=== PATIENT | female | born 2000 | race Caucasian/White ===

== ENCOUNTER 2024-11-27 07:24 | Inpatient (IN) ==
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
[~2024-11-27 07:24] MED LIST: DEXAMETHASONE SOD INJ 4 MG/ML VIAL ONE; MoRPHine SULFATE PF 1 MG/ML 10 ML AMP/VIAL ONE; ONDANSETRON INJ 2 MG/ML 2 ML VIAL ONE; OXYTOCIN 10 UNITS/ML VIAL ONE; PHENYLEPHRINE HCL 25 MG/250 ML NSS IV ONE
[2024-11-27] MEDS ORDERED: LIDOCAINE 1% LOCAL 20 ML VIAL INFIL PRN (08:56)
[2024-11-27] MEDS ORDERED: OXYTOCIN 30 UNITS/NSS 30 UNITS/500 ML BAG IV PRN (08:56)
[2024-11-27] MEDS ORDERED: SODIUM CHLORIDE 0.9% 100 ML IV PRN (08:58)
[2024-11-27 09:44] LABS: Hematocrit (blood only) 32.9 % (37.0-47.0); Hemoglobin 10.9 g/dl (12.0-16.0); Mean Corpuscular Hemoglobin 27.8 pg (25.0-34.0); Mean Corpuscular Volume 83.9 fL (80.0-100.0); Platelet Count 190 K/uL (130-400); RDW Standard Deviation 43.7 fL (36.4-46.3); Red Blood Count 3.92 M/uL (4.20-5.40); White Blood Count 7.55 K/ul (4.8-10.8)
[2024-11-27] MEDS: OXYTOCIN 30 UNITS/NSS 30 UNITS/500 ML BAG IV PRN (09:51)
[2024-11-27] MEDS: LACTATED RINGER'S 1,000 ML IV PRN (09:53)
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
--- NOTE | 2024-11-27 14:00 | Labor Progress Brief Note ---
Date of Service November 27, 2024 Subjective ctx manageable Assessment & Plan (1) Desires (vaginal after ) trial: Plan: 24 yo at 39 wga presents for tolac iol VSS Fetus cat 1 Labor - pit at 10, offered arom and pt agreeable, tolerated well GBS neg epidural prn Admission and Anticipated Discharge Date Admission Date: November 27, 2024 Physical Exam Genitourinary: Manual OB Exam: + cervical dilation (3-4), + cervical effacement 60%, + station -2 and + amniotic fluid (arom clear) OB Exam Monitor Tracing: + external FHT monitor used, + external uterine monitor used (q3-4) and + category I (110-120/mod/+accel/-decel) Results & Data Vital Signs (Past 12 Hours) Vital Signs Temp Pulse Resp BP 11/27/24 13:49 98.4 F 11/27/24 13:05 75 128/69 11/27/24 12:04 69 119/73 11/27/24 11:00 97.9 F 69 18 121/76 11/27/24 09:54 68 111/72 11/27/24 07:50 75 116/64 11/27/24 07:37 98.4 F 75 18 116/64 Coding Level of Care Code None Diagnoses Desires (vaginal after ) trial O34.219
[2024-11-27] MEDS ORDERED: LIDOCAINE 2% MPF LOCAL 5 ML VIAL EPI PRN (16:36)
[2024-11-27] MEDS ORDERED: NALBUPHINE HCL INJ 10 MG/ML AMP IV PRN ×2 (16:36→21:36)
[2024-11-27] MEDS ORDERED: SODIUM CHLORIDE 0.9% PF INJ 10 ML VIAL EPI PRN (16:36)
[2024-11-27] MEDS ORDERED: NALOXONE HCL 1 MG in SODIUM CHLORIDE 0.9% 1,000 ML IV PRN ×2 (16:36→21:36)
[2024-11-27] MEDS ORDERED: BUPIVACAINE 0.25% PF 30 ML VIAL EPI PRN (16:36)
[2024-11-27] MEDS ORDERED: ROPIVACAINE 0.5% PF 5 MG/ML 20 ML VIAL EPI PRN (16:36)
[2024-11-27] MEDS ORDERED: diphenhydrAMINE 50 MG/ML VIAL IV PRN (16:36)
[2024-11-27] MEDS ORDERED: NALOXONE HCL 0.4 MG/1 ML VIAL/CARP IV PRN ×2 (16:36→21:36)
[2024-11-27] MEDS ORDERED: ONDANSETRON INJ 2 MG/ML 2 ML VIAL IV PRN ×2 (16:36→21:36)
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
[2024-11-27] MEDS: LIDOCAINE 2%/EPINEPHRINE 1:200,000 20 ML PF ONE (16:56)
[2024-11-27] MEDS: fentANYL 2 MCG/ML BUPIVacaine 0.125%-NSS 100ML BAG EPI PRN (16:56)
[2024-11-27] MEDS: BUPIVACAINE 0.25% PF 30 ML VIAL EPI STA (16:57)
--- NOTE | 2024-11-27 17:16 | Labor Progress Brief Note ---
Date of Service November 27, 2024 Subjective comfortable w/ epidural Assessment & Plan (1) Desires (vaginal after ) trial: Plan: 24 yo at 39 wga presents for tolac iol VSS Fetus cat 1 Labor - pit at 16, progress noted in exam. Continue induction GBS neg epidural in place Admission and Anticipated Discharge Date Admission Date: November 27, 2024 Physical Exam Genitourinary: Manual OB Exam: + cervical dilation 4 cm, + cervical effacement 70% and + station -1 OB Exam Monitor Tracing: + external FHT monitor used, + external uterine monitor used (q3-4) and + category I (110-120/mod/+accel/- decel) Results & Data Vital Signs (Past 12 Hours) Vital Signs Temp Pulse Resp BP Pulse Ox 11/27/24 17:12 70 100 11/27/24 17:11 75 112/77 11/27/24 17:07 71 99 11/27/24 17:04 71 123/66 11/27/24 17:02 71 120/62 100 11/27/24 17:00 83 118/61 11/27/24 16:58 77 119/61 11/27/24 16:57 75 100 11/27/24 16:56 78 123/70 11/27/24 16:54 76 118/63 11/27/24 16:52 70 125/69 100 11/27/24 16:47 89 100 11/27/24 16:42 75 100 11/27/24 16:00 20 11/27/24 16:00 97.9 F 20 11/27/24 15:56 81 126/73 11/27/24 15:03 73 121/72 11/27/24 14:06 78 129/76 11/27/24 13:49 98.4 F 11/27/24 13:05 75 128/69 11/27/24 12:04 69 119/73 11/27/24 11:00 97.9 F 69 18 121/76 11/27/24 09:54 68 111/72 11/27/24 07:50 75 116/64 11/27/24 07:37 98.4 F 75 18 116/64 Coding Level of Care Code None Diagnoses Desires (vaginal after ) trial O34.219
[2024-11-27] MEDS: SODIUM CHLORIDE 0.9% PF INJ 10 ML VIAL EPI STA (18:58)
[2024-11-27] MEDS: BUPIVACAINE 0.25% PF 30 ML VIAL ONE (18:58)
[2024-11-27] MEDS: fentANYL 2 MCG/ML BUPIVacaine 0.125%-NSS 100ML BAG ONE (18:58)
[2024-11-27] MEDS: SODIUM CHLORIDE 0.9% PF INJ 10 ML VIAL ONE (18:58)
[2024-11-27] MEDS: LIDOCAINE 2%/EPINEPHRINE 1:200,000 20 ML PF EPI STA (18:58)
--- NOTE | 2024-11-27 19:58 | Labor Progress Brief Note ---
Date of Service November 27, 2024 Subjective evaluated due to variables Assessment & Plan (1) Desires (vaginal after ) trial: Plan: 24 yo at 39 wga presents for tolac iol VSS Fetus cat 2 Labor - pit at 18, sve by rn had noted progress to 6 however recurrent variables developed. Would improve initially with repositioning and then recur, occurred with each repositioning. Pitocin d/c'd to allow fetus to recover and will continue to monitor closely GBS neg epidural in place Admission and Anticipated Discharge Date Admission Date: November 27, 2024 Physical Exam Genitourinary: OB Exam Monitor Tracing: + external FHT monitor used, + external uterine monitor used (q3) and + category II (120/mod/+variables) Results & Data Vital Signs (Past 12 Hours) Vital Signs Temp Pulse Resp BP Pulse Ox 11/27/24 19:52 68 100 11/27/24 19:48 70 127/69 11/27/24 19:47 73 11/27/24 19:42 63 11/27/24 19:37 67 11/27/24 19:33 70 134/72 11/27/24 19:32 72 11/27/24 19:31 18 11/27/24 19:31 97.7 F 18 11/27/24 19:27 69 11/27/24 19:22 65 11/27/24 19:19 67 134/74 11/27/24 19:17 63 99 11/27/24 19:12 67 11/27/24 19:07 99 H 99 11/27/24 19:04 63 122/60 11/27/24 19:02 75 11/27/24 18:57 66 11/27/24 18:52 63 11/27/24 18:48 62 114/66 11/27/24 18:47 59 L 11/27/24 18:42 68 11/27/24 18:37 63 11/27/24 18:33 67 115/66 11/27/24 18:32 63 11/27/24 18:27 64 11/27/24 18:22 84 11/27/24 18:18 66 108/66 11/27/24 18:17 66 11/27/24 18:12 62 11/27/24 18:07 62 100 11/27/24 18:03 59 L 119/62 11/27/24 18:02 69 100 11/27/24 17:57 66 100 11/27/24 17:55 64 127/74 11/27/24 17:52 62 100 11/27/24 17:51 61 134/67 11/27/24 17:47 64 100 11/27/24 17:45 68 114/68 11/27/24 17:42 70 100 11/27/24 17:41 61 120/71 11/27/24 17:37 63 99 11/27/24 17:35 68 108/65 11/27/24 17:32 64 99 11/27/24 17:31 68 104/65 11/27/24 17:27 73 118/59 L 99 11/27/24 17:22 65 99 11/27/24 17:21 68 117/63 11/27/24 17:17 70 100 11/27/24 17:16 68 115/64 11/27/24 17:12 70 100 11/27/24 17:11 75 112/77 11/27/24 17:07 71 99 11/27/24 17:05 18 11/27/24 17:05 97.7 F 18 11/27/24 17:04 71 123/66 11/27/24 17:02 71 120/62 100 11/27/24 17:00 83 118/61 11/27/24 16:58 77 119/61 11/27/24 16:57 75 100 11/27/24 16:56 78 123/70 11/27/24 16:54 76 20 118/63 11/27/24 16:52 70 125/69 100 11/27/24 16:47 89 100 11/27/24 16:42 75 100 11/27/24 16:00 20 11/27/24 16:00 97.9 F 20 11/27/24 15:56 81 126/73 11/27/24 15:03 73 121/72 11/27/24 14:06 78 129/76 11/27/24 13:49 98.4 F 11/27/24 13:05 75 128/69 11/27/24 12:04 69 119/73 11/27/24 11:00 97.9 F 69 18 121/76 11/27/24 09:54 68 111/72 Coding Level of Care Code None Diagnoses Desires (vaginal after ) trial O34.219
[2024-11-27] MEDS ORDERED: OXYTOCIN 10 UNITS/ML VIAL ONE (20:42)
[2024-11-27] MEDS ORDERED: ONDANSETRON INJ 2 MG/ML 2 ML VIAL ONE ×2 (20:42→21:39)
[2024-11-27] MEDS ORDERED: MoRPHine SULFATE PF 1 MG/ML 10 ML AMP/VIAL ONE (20:42)
[2024-11-27] MEDS ORDERED: DEXAMETHASONE SOD INJ 4 MG/ML VIAL ONE ×2 (20:42→21:39)
[2024-11-27] MEDS ORDERED: LIDOCAINE 2%/EPINEPHRINE 1:200,000 20 ML PF ONE (20:42)
--- NOTE | 2024-11-27 20:47 | Labor Progress Brief Note ---
Date of Service November 27, 2024 Assessment & Plan (1) Desires (vaginal after ) trial: Plan: 24 yo at 39 wga presents for tolac iol -fetus recovered somewhat with variables improved in depth however still intermittent and variability remains minimal w/o accels. Discussed concern for intolerance if restarting pitocin, particularly given tolac. Cervix is progressed slightly from earlier but also swelling noted anteriorly which is a lso separately concerning. Discussed for nrfht, pt agreeable. Discussed indications, risks, benefits, alternatives with risks including infection, bleeding, injury to adjacent structures (bowel, bladder, ureters, blood vessels, nerves, baby), possible need for blood transfusion and/or life saving hysterectomy, VTE. Consent reviewed in detail w/ pt and signed after all questions answered to her satisfaction. Admission and Anticipated Discharge Date Admission Date: November 27, 2024 Physical Exam Genitourinary: OB Exam Monitor Tracing: + external FHT monitor used, + external uterine monitor used (6) and + category II (125/min/-accel/+intermit variables) Results & Data Vital Signs (Past 12 Hours) Vital Signs Temp Pulse Resp BP Pulse Ox 11/27/24 20:42 84 11/27/24 20:37 86 11/27/24 20:33 75 144/89 H 11/27/24 20:32 76 11/27/24 20:27 70 11/27/24 20:22 77 11/27/24 20:18 75 123/68 11/27/24 20:17 71 95 11/27/24 20:15 75 93 11/27/24 20:12 78 11/27/24 20:07 77 11/27/24 20:04 62 120/66 11/27/24 20:02 66 11/27/24 19:57 64 11/27/24 19:52 68 11/27/24 19:48 70 127/69 11/27/24 19:47 73 11/27/24 19:42 63 11/27/24 19:37 67 11/27/24 19:33 70 134/72 11/27/24 19:32 72 11/27/24 19:31 18 11/27/24 19:31 97.7 F 18 11/27/24 19:27 69 100 11/27/24 19:22 65 100 11/27/24 19:19 67 134/74 11/27/24 19:17 63 99 11/27/24 19:12 67 100 11/27/24 19:07 99 H 99 11/27/24 19:04 63 122/60 11/27/24 19:02 75 100 11/27/24 18:57 66 100 11/27/24 18:52 63 100 11/27/24 18:48 62 114/66 11/27/24 18:47 59 L 100 11/27/24 18:42 68 100 11/27/24 18:37 63 100 11/27/24 18:33 67 115/66 11/27/24 18:32 63 100 11/27/24 18:27 64 100 11/27/24 18:22 84 100 11/27/24 18:18 66 108/66 11/27/24 18:17 66 100 11/27/24 18:12 62 100 11/27/24 18:07 62 100 11/27/24 18:03 59 L 119/62 11/27/24 18:02 69 100 11/27/24 17:57 66 100 11/27/24 17:55 64 127/74 11/27/24 17:52 62 100 11/27/24 17:51 61 134/67 11/27/24 17:47 64 100 11/27/24 17:45 68 114/68 11/27/24 17:42 70 100 11/27/24 17:41 61 120/71 11/27/24 17:37 63 99 11/27/24 17:35 68 108/65 11/27/24 17:32 64 99 11/27/24 17:31 68 104/65 11/27/24 17:27 73 118/59 L 99 11/27/24 17:22 65 99 11/27/24 17:21 68 117/63 11/27/24 17:17 70 100 11/27/24 17:16 68 115/64 11/27/24 17:12 70 100 11/27/24 17:11 75 112/77 11/27/24 17:07 71 99 11/27/24 17:05 18 11/27/24 17:05 97.7 F 18 11/27/24 17:04 71 123/66 11/27/24 17:02 71 120/62 100 11/27/24 17:00 83 118/61 11/27/24 16:58 77 119/61 11/27/24 16:57 75 100 11/27/24 16:56 78 123/70 11/27/24 16:54 76 20 118/63 11/27/24 16:52 70 125/69 100 11/27/24 16:47 89 100 11/27/24 16:42 75 100 11/27/24 16:00 20 11/27/24 16:00 97.9 F 20 11/27/24 15:56 81 126/73 11/27/24 15:03 73 121/72 11/27/24 14:06 78 129/76 11/27/24 13:49 98.4 F 11/27/24 13:05 75 128/69 11/27/24 12:04 69 119/73 11/27/24 11:00 97.9 F 69 18 121/76 11/27/24 09:54 68 111/72 Coding Level of Care Code None Diagnoses Desires (vaginal after ) trial O34.219
[2024-11-27] MEDS: AZITHROMYCIN 500 MG/255 ML BAG IV SCH (21:05)
[2024-11-27] MEDS: CITRIC ACID/SODIUM CITRATE 15 ML UDC PO SCH (21:05)
[2024-11-27] MEDS: ACETAMINOPHEN 500 MG TAB PO SCH (21:05)
[2024-11-27] MEDS ORDERED: HYDROmorphone INJ 0.5 MG/0.5 ML SYR IV PRN (21:36)
[2024-11-27] MEDS ORDERED: NALOXONE HCL 0.08 MG in SYRINGE 1.8 ML IV PRN (21:36)
[2024-11-27] MEDS ORDERED: LACTATED RINGER'S 500 ML IV PRN (21:36)
[2024-11-27] MEDS ORDERED: PROMETHAZINE 6.25 MG/50.25 ML BAG IV PRN (21:36)
[2024-11-27] MEDS ORDERED: MoRPHine SULFATE PF 1 MG/ML 10 ML AMP/VIAL INT SPINAL ONE (21:36)
[2024-11-27] MEDS ORDERED: NO NARCOTICS OR SEDATIVES SCH (21:45)
[2024-11-27] MEDS ORDERED: DC INTRASPINAL MORPHINE SCH (21:45)
--- NOTE | 2024-11-27 22:29 | Operative Report ---
Post Operative Report Pre & Post Diagnosis Operation Date: 11/27/24 21:15 Pre-Op Diagnosis: Intrauterine at 41 wga History of Section Non reassuring heart tones Post-Op Diagnosis: same delivery of live female child at 2133 I identified the patient and participated in the time-out.: Yes Procedure Operation Date: 11/27/24 21:15 Actual Procedures p Repeat Low Transverse Section in LD - Eileen Rose MD Surgeon Eilene Rose MD Furniture Repair Technician MD Radha Quantitative Blood Loss (QBL) 440 Findings Consistent with Post-Op Diagnosis Viable female infant with APGARs 8 and 9. Normal appearing uterus, bilateral fallopian tubes and ovaries Fluids UOP 50cc by glasgow catheter Specimens Placenta, cord blood Anesthesia Type L&D Only Epidural Exists Complications none Disposition Accompanied Patient To Recovery: Yes Disposition: L&D Indications 24 yo at 41 wga presented for TOLAC IOL. Induction was begun with pitocin. She underwent arom and received an epidural for pain control. At approximately 6cm, fetus began having variable decels. Maternal repositioning/resuscitation was performed however did not improve so pitocin was stopped. Following dc of pitocin, variables did improve however continued to have intermittent variables and minimal variability. Cervix was rechecked and 7cm but anterior rim was swollen. Given tracing, was recommended for CS Description of Procedure The patient was taken to the operating room after consents were ensured. The patient was properly identified. Epidural anesthesia was bolused without difficulty. The patient was placed in a dorsal supine position with left lateral tilt, then prepped and draped in normal sterile fashion. Surgical time out was performed. Antibiotics were given for prophylaxis. Anesthesia was tested to ensure adequate surgical levels. Pfannenstiel skin incision was performed and carried down to the underlying fascia with a knife. The fascia was then nicked in the midline and extended laterally with pickkavita and Patton scissors. Superior portion of the fascia was grasped with Kochers x2 and elevated off the underlying rectus muscles using blunt dissection. Inferior portion of the fascia was then grasped with Jasvir clamps x2 and also elevated off the underlying muscles with blunt dissection. Midline was identified. The peritoneum was then entered and extended to provide adequate room for delivery of baby. A hand was inserted into the abdomen, uterus was noted to be clear of adhesions. Bladder blade was inserted, bladder flap was created in the usual fashion. A low transverse uterine incision was made in the uterus and extended bluntly in a superior to inferior fashion. Clear fluid noted at time of entry. head was grasped and elevated through the hysterotomy in an atraumatic fashion. The baby delivered in DERECK position, no nuchal cord. R emainder of the body delivered without incident. Nose and mouth were bulb suctioned on the surgical field. The cord was double clamped and cut, baby was handed off to awaiting pediatrics staff. Cord segment and blood were obtained. Placenta was then expressed from the uterus. The uterus was exteriorized. Several passes were made inside the uterus to remove the remaining membranes. Attention was then turned to the hysterotomy, which was then closed with a running locked suture of 0 Vicryl on a CTX needle. An imbricating layer was then performed using 0-Monocryl. There was noted to be good hemostasis. The posterior cul-de-sac was then inspected and cleaned of clot and debris. The hysterotomy was again inspected and noted to be hemostatic. The uterus was returned to the abdomen. The right and left pericolic gutters were cleaned of all clot and debris. The hysterotomy was again noted to be hemostatic. Space of Retzius was noted to be hemostatic. Area of bleeding on the posterior aspect of the rectus muscle was made hemostatic with figure of eight stitches. There was then excellent hemostasis. The fascia was then closed with a running suture of 0 Vicryl on a CT1 needle. Subcutaneous tissue was copiously irrigated and noted to be hemostatic. Subcutaneous tissue was re-approximated using 2-0 plain gut. The skin was then closed with a running suture of 3-0 Monocryl in a subcuticular fashion. At termination of the procedure, fundal pressure was applied and a moderate amount of lochia was expressed. Pressure dressing was applied to the patient. She tolerated the procedure well. All sponge, needle, instrument counts were correct x 2. I attest to the content of the Intraoperative Record and any orders documented therein. Any exceptions are noted below. OB Procedure Charges 66066
--- NOTE | 2024-11-27 22:43 | Anesthesia Procedure Note ---
Date of Service November 27, 2024 Anesthesia Post Epidural Note Vital Signs Vital Signs: Temp Pulse Resp BP Pulse Ox 97.7 F 88 18 112/56 L 100 11/27/24 19:31 11/27/24 22:37 11/27/24 19:31 11/27/24 22:25 11/27/24 22:37 Pain Intensity Abdomen: Pain Intensity: 1 Notes Mental Status: alert / awake / arousable and participated in evaluation Nausea / Vomiting: adequately controlled Pain: adequately controlled Airway Patency, RR, SpO2: stable & adequate BP & HR: stable & adequate Hydration State: stable & adequate Neuraxial Anesthesia: was administered and sensory block is resolving Anesthetic Complications: no major complications apparent and Pt Satisfied with anesthetic care Epidural: Removed without complications and With tip intact
--- NOTE | 2024-11-27 22:44 | Anesthesiology Progress Note ---
Date of Service November 27, 2024 Anesthesia Post Procedure Vital Signs Vital Signs: Temp Pulse Resp BP Pulse Ox 11/27/24 22:37 88 100 11/27/24 22:32 81 100 11/27/24 22:31 93 H 92 11/27/24 22:27 80 100 11/27/24 22:25 82 112/56 L 11/27/24 22:22 178 H 96 11/27/24 21:00 90 93 11/27/24 20:57 77 96 11/27/24 20:52 89 100 11/27/24 20:49 76 130/68 11/27/24 20:47 77 100 11/27/24 20:42 84 100 11/27/24 20:37 86 100 11/27/24 20:33 75 144/89 H 11/27/24 20:32 76 100 11/27/24 20:27 70 100 11/27/24 20:22 77 100 11/27/24 20:18 75 123/68 11/27/24 20:17 71 95 11/27/24 20:15 75 93 11/27/24 20:12 78 100 11/27/24 20:07 77 100 11/27/24 20:04 62 120/66 11/27/24 20:02 66 100 11/27/24 19:57 64 100 11/27/24 19:52 68 100 11/27/24 19:48 70 127/69 11/27/24 19:47 73 100 11/27/24 19:42 63 100 11/27/24 19:37 67 100 11/27/24 19:33 70 134/72 11/27/24 19:32 72 100 11/27/24 19:31 18 11/27/24 19:31 97.7 F 18 11/27/24 19:27 69 100 11/27/24 19:22 65 100 11/27/24 19:19 67 134/74 11/27/24 19:17 63 99 11/27/24 19:12 67 100 11/27/24 19:07 99 H 99 11/27/24 19:04 63 122/60 11/27/24 19:02 75 100 11/27/24 18:57 66 100 11/27/24 18:52 63 100 11/27/24 18:48 62 114/66 11/27/24 18:47 59 L 100 11/27/24 18:42 68 100 11/27/24 18:37 63 100 11/27/24 18:33 67 115/66 11/27/24 18:32 63 100 11/27/24 18:27 64 100 11/27/24 18:22 84 100 11/27/24 18:18 66 108/66 11/27/24 18:17 66 100 11/27/24 18:12 62 100 11/27/24 18:07 62 100 11/27/24 18:03 59 L 119/62 11/27/24 18:02 69 100 11/27/24 17:57 66 100 11/27/24 17:55 64 127/74 11/27/24 17:52 62 100 11/27/24 17:51 61 134/67 11/27/24 17:47 64 100 11/27/24 17:45 68 114/68 11/27/24 17:42 70 100 11/27/24 17:41 61 120/71 11/27/24 17:37 63 99 11/27/24 17:35 68 108/65 11/27/24 17:32 64 99 11/27/24 17:31 68 104/65 11/27/24 17:27 73 118/59 L 99 11/27/24 17:22 65 99 11/27/24 17:21 68 117/63 11/27/24 17:17 70 100 11/27/24 17:16 68 115/64 11/27/24 17:12 70 100 11/27/24 17:11 75 112/77 11/27/24 17:07 71 99 11/27/24 17:05 18 11/27/24 17:05 97.7 F 18 11/27/24 17:04 71 123/66 11/27/24 17:02 71 120/62 100 11/27/24 17:00 83 118/61 11/27/24 16:58 77 119/61 11/27/24 16:57 75 100 11/27/24 16:56 78 123/70 11/27/24 16:54 76 20 118/63 11/27/24 16:52 70 125/69 100 11/27/24 16:47 89 100 11/27/24 16:42 75 100 11/27/24 16:00 20 09/11/25 16:00 97.9 F 20 11/27/24 15:56 81 126/73 11/27/24 15:03 73 121/72 11/27/24 14:06 78 129/76 11/27/24 13:49 98.4 F 11/27/24 13:05 75 128/69 11/27/24 12:04 69 119/73 11/27/24 11:00 97.9 F 69 18 121/76 11/27/24 09:54 68 111/72 11/27/24 07:50 75 116/64 11/27/24 07:37 98.4 F 75 18 116/64 Pain Intensity Abdomen: Pain Intensity: 1 Transfer of Care Handoff Completed per policy Notes Mental Status: alert / awake / arousable and participated in evaluation Patient Amnestic to Procedure: No Nausea / Vomiting: adequately controlled Pain: adequately controlled Airway Patency, RR, SpO2: stable & adequate BP & HR: stable & adequate Hydration State: stable & adequate Neuraxial Anesthesia: was administered and sensory block is resolving Anesthetic Complications: no major complications apparent and Pt Satisfied with anesthetic care
[2024-11-27] MEDS ORDERED: BENZOCAINE 20% SPRY 85 APPLN/85 GM CAN EXT PRN (23:03)
[2024-11-27] MEDS ORDERED: CALCIUM CARBONATE 500 MG CHEWABLE TAB PO PRN (23:03)
[2024-11-27] MEDS ORDERED: MAGNESIUM HYDROXIDE SUSP 30 ML UDC PO PRN (23:03)
[2024-11-27] MEDS ORDERED: HYDROCORTISONE ACETATE 25 MG SUPP PR PRN (23:03)
[2024-11-27] MEDS ORDERED: SENNA 8.6 MG TAB PO PRN (23:03)
[2024-11-27] MEDS: KETOROLAC 30 MG/ML VIAL IV SCH (23:36)
[2024-11-27] MEDS: OXYTOCIN 20 UNITS/LR 1,002 ML IV SCH (23:41)
[2024-11-28] MEDS: LACTATED RINGER'S 1,000 ML IV SCH (01:14)
[2024-11-28] MEDS: SODIUM CHLORIDE 0.9% 1,000 ML IV SCH (01:14)
[2024-11-28] MEDS: DIPHTHER/TETAN/PERTUS Vaccine (Tdap, Adol/Adult) 0.5mL IM ONE (01:14)
[2024-11-28] MEDS: diphenhydrAMINE 50 MG/ML VIAL IV PRN (05:33)
[2024-11-28] MEDS: SIMETHICONE 80 MG CHEW PO SCH (05:33)
[2024-11-28] MEDS: ACETAMINOPHEN 325 MG TAB PO SCH (06:02)
[2024-11-28 06:23] LABS: Hematocrit (blood only) 30.3 % (37.0-47.0); Hemoglobin 10.0 g/dl (12.0-16.0); Immature Granulocytes # (auto) 0.05 K/uL (0.01-0.20); Immature Granulocytes % (auto) 0.6 %; Mean Corpuscular Hemoglobin 27.7 pg (25.0-34.0); Mean Corpuscular Volume 83.9 fL (80.0-100.0); Platelet Count 173 K/uL (130-400); RDW Standard Deviation 43.0 fL (36.4-46.3); Red Blood Count 3.61 M/uL (4.20-5.40); White Blood Count 8.64 K/ul (4.8-10.8)
--- NOTE | 2024-11-28 06:55 | Obstetrical Progress Note ---
Date of Service November 28, 2024 Assessment & Plan (1) Encounter for care and examination after delivery: 24 [facility] -[place] not yet out but clear urine draining, not been out of bed yet -O+/rubella immune -continue routine care today, will remove glasgow and begin ambulating. Feeling well otherwise Subjective Voiding: glasgow catheter in place Passing Gas:: No Diet Tolerance:: regular diet Lochia:: Small Feeding Type:: breast feeding Pain well managed with medication Review of Systems Denies fevers, chills, n/v, WRIGHT, CP, SOB Physical Exam Constitutional WD/WN, vitals as above no acute distress Respiratory normal respiratory effort, lungs clear to auscultation Cardiovascular RRR, no murmur, no edema Gastrointestinal (Abdomen) Percussion/Palpation: abdomen soft; abdomen nontender fundus firm at umbilicus and NT, dressing c/d/i Musculoskeletal BLE symmetric, nonerythematous, nontender Results & Data Vital Signs (Past 12 Hours) Vital Signs Temp Pulse Pulse Resp BP BP Pulse Ox 11/28/24 06:47 16 98 11/28/24 05:00 16 97 11/28/24 04:50 16 98 11/28/24 04:05 98.1 F 70 18 108/73 98 11/28/24 03:26 16 98 11/28/24 02:35 16 97 11/28/24 01:25 16 97 11/28/24 00:45 16 98 11/28/24 00:30 97.5 F L 67 18 111/71 97 11/28/24 00:20 111 H 119/60 11/28/24 00:17 77 98 11/28/24 00:15 67 107/66 11/28/24 00:12 64 100 11/28/24 00:07 73 100 11/28/24 00:05 82 104/72 11/28/24 00:02 69 99 11/27/24 23:57 68 99 11/27/24 23:55 64 98/65 L 11/27/24 23:52 69 99 11/27/24 23:47 74 100 11/27/24 23:45 72 104/58 L 11/27/24 23:42 66 100 11/27/24 23:37 66 100 11/27/24 23:35 70 109/65 11/27/24 23:32 80 99 11/27/24 23:27 76 100 11/27/24 23:25 68 104/55 L 11/27/24 23:22 68 100 11/27/24 23:17 73 100 11/27/24 23:15 69 104/59 L 11/27/24 23:12 67 100 11/27/24 23:07 74 100 11/27/24 23:05 71 107/57 L 11/27/24 23:02 72 100 11/27/24 22:57 74 100 11/27/24 22:55 77 105/55 L 11/27/24 22:52 84 98 11/27/24 22:47 79 99 11/27/24 22:45 90 110/60 11/27/24 22:42 83 99 11/27/24 22:37 88 100 11/27/24 22:32 81 100 11/27/24 22:31 93 H 92 11/27/24 22:27 80 100 11/27/24 22:25 82 112/56 L 11/27/24 22:22 178 H 96 11/27/24 22:20 98.1 F 11/27/24 21:00 90 93 11/27/24 20:57 77 96 11/27/24 20:52 89 100 11/27/24 20:49 76 130/68 11/27/24 20:47 77 100 11/27/24 20:42 84 100 11/27/24 20:37 86 100 11/27/24 20:33 75 144/89 H 11/27/24 20:32 76 100 11/27/24 20:27 70 100 11/27/24 20:22 77 100 11/27/24 20:18 75 123/68 11/27/24 20:17 71 95 11/27/24 20:15 75 93 11/27/24 20:12 78 100 11/27/24 20:07 77 100 11/27/24 20:04 62 120/66 11/27/24 20:02 66 100 11/27/24 19:57 64 100 11/27/24 19:52 68 100 11/27/24 19:48 70 127/69 11/27/24 19:47 73 100 11/27/24 19:42 63 100 11/27/24 19:37 67 100 11/27/24 19:33 70 134/72 11/27/24 19:32 72 100 11/27/24 19:31 18 11/27/24 19:31 97.7 F 18 11/27/24 19:27 69 100 11/27/24 19:22 65 100 11/27/24 19:19 67 134/74 11/27/24 19:17 63 99 11/27/24 19:12 67 100 11/27/24 19:07 99 H 99 11/27/24 19:04 63 122/60 11/27/24 19:02 75 100 11/27/24 18:57 66 100 O2 Del Method 11/28/24 06:47 11/28/24 05:00 11/28/24 04:50 11/28/24 04:05 Room Air 11/28/24 03:26 11/28/24 02:35 11/28/24 01:25 11/28/24 00:45 11/28/24 00:30 Room Air 11/28/24 00:20 11/28/24 00:17 11/28/24 00:15 11/28/24 00:12 11/28/24 00:07 11/28/24 00:05 11/28/24 00:02 11/27/24 23:57 11/27/24 23:55 11/27/24 23:52 11/27/24 23:47 11/27/24 23:45 11/27/24 23:42 11/27/24 23:37 11/27/24 23:35 11/27/24 23:32 11/27/24 23:27 11/27/24 23:25 11/27/24 23:22 11/27/24 23:17 11/27/24 23:15 11/27/24 23:12 11/27/24 23:07 11/27/24 23:05 11/27/24 23:02 11/27/24 22:57 11/27/24 22:55 11/27/24 22:52 11/27/24 22:47 11/27/24 22:45 11/27/24 22:42 11/27/24 22:37 11/27/24 22:32 11/27/24 22:31 11/27/24 22:27 11/27/24 22:25 11/27/24 22:22 11/27/24 22:20 11/27/24 21:00 11/27/24 20:57 11/27/24 20:52 11/27/24 20:49 11/27/24 20:47 11/27/24 20:42 11/27/24 20:37 11/27/24 20:33 11/27/24 20:32 11/27/24 20:27 11/27/24 20:22 11/27/24 20:18 11/27/24 20:17 11/27/24 20:15 11/27/24 20:12 11/27/24 20:07 11/27/24 20:04 11/27/24 20:02 11/27/24 19:57 11/27/24 19:52 11/27/24 19:48 11/27/24 19:47 11/27/24 19:42 11/27/24 19:37 11/27/24 19:33 11/27/24 19:32 11/27/24 19:31 11/27/24 19:31 11/27/24 19:27 11/27/24 19:22 11/27/24 19:19 11/27/24 19:17 11/27/24 19:12 11/27/24 19:07 11/27/24 19:04 11/27/24 19:02 11/27/24 18:57
[2024-11-28] MEDS: FERROUS SULFATE 325 MG TAB PO SCH (07:40)
[2024-11-28] MEDS: PRENATAL VITAMIN 1 TAB PO SCH (07:41)
[2024-11-28] MEDS: DOCUSATE SODIUM 100 MG CAP PO SCH (07:41)
[2024-11-28] MEDS ORDERED: PROMETHAZINE 12.5 MG/50.5 ML BAG IV PRN (15:36)
[2024-11-28] MEDS ORDERED: diphenhydrAMINE Capsule 25 MG CAP PO PRN (15:36)
[2024-11-28] MEDS ORDERED: ONDANSETRON INJ 2 MG/ML 2 ML VIAL IV PRN (15:36)
[2024-11-28] MEDS ORDERED: HYDROmorphone INJ 0.5 MG/0.5 ML SYR IV PRN (15:36)
[2024-11-28] MEDS ORDERED: diphenhydrAMINE 50 MG/ML VIAL IV PRN (15:36)
[2024-11-28] MEDS: IBUPROFEN 600 MG TAB PO PRN (18:34)
[2024-11-28] MEDS: IBUPROFEN 600 MG TAB PO ONE (18:36)
[2024-11-28] MEDS ORDERED: KETOROLAC 30 MG/ML VIAL IV PRN (23:00)
[2024-11-29] MEDS: IBUPROFEN 600 MG TAB PO SCH (00:35)
[2024-11-29 06:51] LABS: Hematocrit (blood only) 25.4 % (37.0-47.0); Hemoglobin 8.5 g/dl (12.0-16.0)
--- NOTE | 2024-11-29 07:30 | Obstetrical Progress Note ---
Date of Service November 29, 2024 Assessment & Plan (1) Encounter for care and examination after delivery: POD#2 doing well. Ambulating, eating/drinking ok, pain controlled. Desires DC home. Reviewed postop instructions, followup 6w. Rx #10 oxycodone sent to [facility] per her request. Subjective Ambulation: ambulating normally Voiding: no voiding problems Diet Tolerance:: regular diet Lochia:: Moderate Review of Systems All systems reviewed & are unremarkable except as noted in HPI & below Physical Exam Constitutional WD/WN, vitals as above no acute distress Respiratory normal respiratory effort Cardiovascular Rate/Rhythm: regular rate and regular rhythm Gastrointestinal (Abdomen) Inspection/Auscultation: abdomen normal to inspection; abdomen not distended Percussion/Palpation: abdomen soft Genitourinary OB Exam Abdomen: + fundal height Fundus: + firm; not tender Results & Data Vital Signs (Past 12 Hours) Vital Signs Temp Pulse Resp BP Pulse Ox O2 Del Method 11/29/24 00:32 36.7 C 88 16 106/69 97 Room Air 11/28/24 19:35 36.7 C 88 18 96/61 L 98 Room Air
[2024-11-29 09:41] VITALS: BP 103/66; PULSE 85; RESP 18; TEMP 97.3; O2SAT 98
[2024-11-30] MEDS ORDERED: ACETAMINOPHEN 325 MG TAB PO PRN (04:21)
--- NOTE | 2024-12-02 08:17 | Discharge Summary ---
Date of Service December 02, 2024 Admission HPI Per Admitting Provider 24 yo at 39 wga presents for tolac iol. 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 Induction was begun with pitocin. She underwent arom and received an epidural for pain control. At approximately 6cm, fetus began having variable decels. Maternal repositioning/resuscitation was performed however did not improve so pitocin was stopped. Following dc of pitocin, variables did improve however continued to have intermittent variables and minimal variability. Cervix was rechecked and 7cm but anterior rim was swollen. Given tracing, was recommended for CS. See operative report for details. Postop course uncomplicated and she was discharged home on POD2 Coding Level of Care Code None Diagnoses Desires (vaginal after ) trial O34.219 S/P section Z98.891
== END 2024-11-29 12:01 | disposition home or self-care (01) | DRG 788 ==
LOC: 4S1 07:24 → EDSTATUS 07:30 → 4E2 11-28 00:20
DX: O48.0 Post-term pregnancy; O76 Abnormality in fetal heart rate and rhythm complicating labor and delivery; Z37.0 Single live birth; O34.211 Maternal care for low transverse scar from previous cesarean delivery; Z3A.41 41 weeks gestation of pregnancy